=== PATIENT | male | born 1965 | race Caucasian/White ===

== ENCOUNTER 2024-05-29 20:49 | Emergency (ER) | payer OTHER, SELFPAY ==
[2024-05-29 20:52] VITALS: BP 198/102
[2024-05-29 21:00] VITALS: BP 158/89
[2024-05-29 21:07] VITALS: BMI 30.9
--- NOTE | 2024-05-29 21:50 | ED.GENMED ---
History of Present Illness
General
Chief Complaint: Crisis Evaluation
Source: patient and other (Brother)
Exam Limitations: none
Time Seen by Provider: 05/29/24 21:08
History of Present Illness
History of Present Illness:
59-year-old male history of ongoing chronic pain in his abdomen and sciatic-like pain. Presents with a overdose in a suicide attempt x 2. Took extra of his medications last night and the night before. He states there is no reason to live. He is
a burden to everyone. His chronic pain is worse today. He is unsure of how complete his workup has been for this in the past. He has seen [facility] orthopedics for the sciatica in the past. He is on Naprosyn Lyrica for the pain.
Past History
Past History
ED Past Medical History: CAD, HTN, Hypercholesterolemia and NIDDM
ED Past Surgical History: Appendectomy, Cardiac, Orthopedic, Urological and Other (Hernia repair/mesh)
Review of Systems
Review of Systems
All Other Systems: Not applicable
Constitutional: Denies fever or chills
Respiratory: Reports no symptoms
Cardiac: Reports no symptoms
Phy Exam
Physical Exam
Physical Exam:
GENERAL: Alert and oriented. Nontoxic-appearing. Somewhat chronically ill-appearing. Does appear to be in some discomfort with movement
EYE: Orbits normal.
NECK: Supple
CARDIAC: Regular rate and rhythm without any obvious murmurs.
LUNGS: Clear breath sounds,normal
ABDOMEN: Soft, old right lower quadrant scar. Bowel sounds present. Nonlocalizing tenderness mostly in the lower quadrants. No obvious hernia.
NEUROLOGICAL: Alert and oriented , grossly non-focal
SKIN: Warm and dry, no rash or lesion, no discoloration, skin intact.
MUSCULOSKELETAL: No edema,no deformity.Good color
PSYCH: Normal and appropriate interaction.
Course
Orders/Labs/Results
Orders:
Orders
05/29/24 21:12
Crisis Consult Urgent
Reason for Consult: SI
1:1 Observation - Suicide/ Violent Behavior As Directed
05/29/24 21:32
IV Insert/Care/Rem.- Treatment PRN
0.9% Sodium Chloride 1000 ml [Nss] 1,000 ml IV BOLUS
05/29/24 21:33
CT Abd/Pel (IV only)-DH only Urgent
Comment:
Reason For Exam: Acute on chronic abdominal pain mostly lower abdom
05/29/24 21:50
Acetaminophen Urgent
Alcohol Urgent
Complete Blood Count/With Diff Urgent
Comprehensive Metabolic Panel Urgent
Fentanyl, Urine Urgent
Lipase Urgent
Salicylate Urgent
Urinalysis Reflex To Culture Urgent
Date Specimen was Collected: 05/29/24
Time Specimen was Collected: 21:35
Urine Drug Abuse Screen Urgent
Date Specimen was Collected: 05/29/24
Time Specimen was Collected: 21:35
05/29/24 21:51
Ketorolac [Toradol] 15 mg IV NOW STA
05/29/24 23:49
Lorazepam [Ativan] 1 mg PO NOW STA
Abnormal Lab Results
05/29/24
21:50
WBC 11.2 H 10^3/uL
(4.8-10.8)
MPV 11.3 H fL
(7.4-10.4)
Abs Immat Gran (auto) 0.1 H 10^3/uL
(0-0.05)
Absolute Neuts (auto) 7.0 H 10^3/uL
(1.4-6.5)
Absolute Monos (auto) 1.2 H 10^3/uL
(0.1-0.6)
Immature Gran % 0.7 H %
(0-0.5)
Monocytes % 10.7 H %
(1.7-9.3)
BUN 22 H mg/dl
(9-20)
Urine Ketones 1+ A
(Negative)
Urine Bilirubin 1+ A
(Negative)
Salicylates < 1.0 L mg/dl
(2.0-20.0)
Acetaminophen < 10 L ug/ml
(10-30)
Ur Amphetamines Screen Positive H
(Negative)
U Marijuana (THC) Screen Positive H
(Negative)
05/29/24 21:50
05/29/24 21:50
Vital Signs
Initial and Last Documented VS:
Initial Vital Signs
Temp Pulse Resp BP Pulse Ox
98.3 F 88 24 198/102 98
05/29/24 20:52 05/29/24 20:52 05/29/24 20:52 05/29/24 20:52 05/29/24 20:52
Last Documented Vital Signs
Temp Pulse Resp BP Pulse Ox
98.3 F 66 18 149/84 97
05/29/24 20:52 05/30/24 04:45 05/30/24 04:45 05/30/24 04:45 05/30/24 04:45
MDM/Problems Addressed
Differential Diagnosis Includes:
Patient's with multiple issues. #1 is the overdose. He is he is not describing Tylenol or aspirin overdose. He is clinically stable. We will check electrolytes Tylenol and aspirin levels. As for his his ongoing abdominal pain this appears to be
a chronic issue but workup is unsure at this time. We will check CMP lipase and a CT scan. Finally there is the depression and suicidal ideation which needs to be addressed through crisis and a possible 302 being petition by his brother.
*Radiology
Radiology exam reviewed: radiology read reviewed (No acute abnormalities. Moderate stool burden left inguinal hernia containing fat)
*Pulse Oximetry
Patient hypoxic: no
*Critical Care Note
Total Time (30-74mins, 75-104mins- exclusive of procedures): Not Applicable
Update Note
Update Note:
Medically cleared. Patient currently voluntary but has a 302 backup
ED Attending Note
-
Portions of this chart may have been created with voice recognition software.� Occasional wrong word or��sound alike� substitutions may have occurred due to the inherent limitations of voice recognition software.
Discharge Plan
Departure
Patient Disposition: Psych Facility
Date of Disposition: 05/29/24
Time of Disposition: 23:46
Discharge Problem:
Depression/suicidal ideation, Recent overdose, History of chronic pain
Prescriptions:
No Action
atorvastatin 40 mg Tablet
40 mg PO DAILY
amlodipine 5 mg Tablet
5 mg PO DAILY
aspirin 81 mg Tablet,Delayed Release (Dr/Ec)
81 mg PO DAILY
baclofen 10 mg Tablet
10 mg PO BID
metoprolol succinate 25 mg Tablet Extended Release 24 Hr
25 mg PO DAILY
naproxen 500 mg Tablet
500 mg PO BID
pregabalin [Lyrica] 75 mg Capsule
75 mg PO BID
lisdexamfetamine [Vyvanse] 30 mg Capsule
30 mg PO DAILY
Rx Instructions:
take with 40mg cap for total of 70mg
lisdexamfetamine [Vyvanse] 40 mg Capsule
40 mg PO DAILY
Rx Instructions:
take with 30mg cap for total of 70mg
Referrals:
UNKNOWN - PT DOES,NOT KNOW [Family Provider] -
Interventions
Interventions:
*Risk Screen - Suicide Last Done: 05/29/24 21:07
*General Assessment Last Done: 05/29/24 21:07
*Neglect/Abuse Screening Last Done: 05/29/24 21:07
ED- Fall Risk Assessment Last Done: 05/29/24 21:17
*ED COVID-19 Vaccine History Last Done: 05/29/24 21:07
*Nursing Disposition Last Done: 05/30/24 10:12
ED- Neurological Assessment Last Done: 05/29/24 21:17
ED-Psychological Assessment Last Done: 05/29/24 21:17
Discharge Date and Time
Discharge Date/Time: 05/30/24 10:13
Print Language: SPANISH
[2024-05-29] MEDS: NSS 1000 IV (21:53)
[2024-05-29] MEDS: TORADOL 15 MG IV (21:54)
[2024-05-29 22:00] LABS: Urine Albumin Negative (Neg - Trace); Urine Bilirubin 1+ (Negative); Urine Character Clear (Clear); Urine Color Yellow; Urine Glucose Negative (Negative); Urine Ketone 1+ (Negative); Urine Leukocyte Negative (Negative); Urine Nitrite Negative (Negative); Urine Occult Blood Negative (Negative); Urine Specific Gravity 1.025 (<1.030); Urine Urobilinogen Negative (Neg - 1+)
[2024-05-29 22:01] LABS: % Basophils 0.7 % (0-2); % Eosinophils 2.7 % (0-6); % Immature Granulocytes 0.7 % (0-0.5); % Lymphocytes 22.5 % (20.5-51.1); % Monocytes 10.7 % (1.7-9.3); % Neutrophils 62.7 % (42.2-75.2); Absolute Basophils 0.1 10^3/uL (0-0.2); Absolute Eosinophils 0.3 10^3/uL (0-0.7); Absolute Immature Granulocytes 0.1 10^3/uL (0-0.05); Absolute Lymphocytes 2.5 10^3/uL (1.2-3.4); Absolute Monocytes 1.2 10^3/uL (0.1-0.6); Hematocrit 44.5 % (39.0-52.0); Hemoglobin 15.3 g/dL (13.0-18.0); Mean Corp Hgb Conc. 34.4 g/dL (33.0-37.0); Mean Corpuscular Hgb 29.9 pg (27.0-31.0); Mean Corpuscular Volume 86.9 fL (80.0-94.0); Mean Platelet Volume 11.3 fL (7.4-10.4); Nucleated Red Blood Cells % 0 % (-); Platelet Count 242 10^3/uL (130-400); Red Blood Cell Count 5.12 10^6/uL (4.70-6.10); Red Cell Dist. Width 13.7 % (11.5-14.5); White Blood Cell Count 11.2 10^3/uL (4.8-10.8)
[2024-05-29 22:18] LABS: Chloride 103 mmol/L (98-107); Potassium 3.8 mmol/L (3.5-5.1); Sodium 137 mmol/L (135-145)
[2024-05-29 22:20] LABS: Amphetamines Positive (Negative); Barbiturates Negative (Negative); Benzodiazepines Negative (Negative); Buprenorphine Negative (Negative); Cocaine Negative (Negative); Marijuana Positive (Negative); Methadone Negative (Negative); Methamphetamines Negative (Negative); Opiates Negative (Negative); Phencyclidine Negative (Negative); Tricyclic Antidepressants Negative (Negative)
[2024-05-29 22:21] LABS: ALT (SGPT) 23 U/L (0-50); AST (SGOT) 27 U/L (17-59); Acetaminophen < 10 ug/ml (10-30); Albumin 4.6 g/dl (3.5-5.0); Alkaline Phosphatase 76 U/L (38-126); Blood Urea Nitrogen 22 mg/dl (9-20); Calcium 9.6 mg/dl (8.4-10.2); Carbon Dioxide 27 mmol/L (22-30); Estimated Creatinine Clearance 91 ml/min; Glucose 98 mg/dl (70-99); Lipase 241 U/L (23-300); Salicylate < 1.0 mg/dl (2.0-20.0); Total Bilirubin 1.1 mg/dl (0.2-1.3); eGFR > 60.00
[2024-05-29 22:22] LABS: Alcohol None Detected
[2024-05-29 22:43] LABS: Fentanyl, Urine Negative (Negative)
[2024-05-30] MEDS: ATIVAN 1 MG PO (00:05)
[2024-05-30 04:45] VITALS: BP 149/84
== END 2024-05-30 10:13 ==
LOC: EMR 20:49
PROVIDERS: EMERGENCY PHYSICIAN Emergency Medicine
DX: R10.9 Unspecified abdominal pain (principal); F32.A Depression, unspecified; R45.851 Suicidal ideations; G89.29 Other chronic pain; I25.10 Atherosclerotic heart disease of native coronary artery without angina pectoris; I10 Essential (primary) hypertension; E78.00 Pure hypercholesterolemia, unspecified; E11.9 Type 2 diabetes mellitus without complications; Z90.49 Acquired absence of other specified parts of digestive tract; Z98.890 Other specified postprocedural states
CPT/HCPCS: 99284; 96374; 96361; 74177; 80053; 80143; 80179; 80306; 80307; 81003; 82077; 83690; 85025; Q9967